=== PATIENT | male | born 1960 | race Caucasian/White ===

== ENCOUNTER 2024-05-14 10:36 | Emergency (ER) | payer BC, OTHER ==
[2024-05-14] MEDS: Metoclopramide 10 MG/2 ML SDV IM ONE (12:19)
[2024-05-14] MEDS: Lidocaine 1% 10 ML MDV INJECT ONE (13:32)
[2024-05-14] MEDS: Doxycycline Monohydrate 100 MG Cap PO ONE (13:32)
[2024-05-14 15:07] VITALS: BP 132/85; PULSE 79
== END 2024-05-14 13:20 | disposition home or self-care (01) ==
LOC: JD.ED 10:36
DX: S61.213A Laceration without foreign body of left middle finger without damage to nail, initial encounter (principal); Z88.0 Allergy status to penicillin; W29.0XXA Contact with powered kitchen appliance, initial encounter
CPT/HCPCS: 12004; 73130; 96372; 99283; A9270; J2765; J3490